=== PATIENT | female | born 1980 | race Caucasian/White ===

== ENCOUNTER 2019-01-30 19:06 | Inpatient (IN) | payer SELFPAY ==
[~2019-01-30] VITALS: Ht 172.7 cm; Wt 87.7 kg
[2019-01-30 19:42] LABS: BASO # 0.1 x10^3/uL (0.0-0.2); BASO % 1 % (0-3); EOS # 0.1 x10^3/uL (0.0-0.7); EOS % 1 % (0-3); HEMATOCRIT 39.2 % (36.0-47.0); HEMOGLOBIN 13.4 g/dL (12.0-15.5); LYMPH # 2.5 x10^3/uL (1.0-4.8); LYMPH % 22 % (24-48); MEAN CORPUSCULAR HEMOGLOBIN 31 pg (25-35); MEAN CORPUSCULAR HGB CONC 34 g/dL (31-37); MEAN CORPUSCULAR VOLUME 92 fL (79-100); MONO # 0.8 x10^3/uL (0.0-1.1); MONO % 7 % (0-9); NEUT # 7.8 x10^3uL (1.8-7.7); NEUT % 69 % (31-73); PLATELET COUNT 316 x10^3/uL (140-400); RED BLOOD COUNT 4.27 x10^6/uL (3.50-5.40); RED CELL DISTRIBUTION WIDTH 12.6 % (11.5-14.5); WHITE BLOOD COUNT 11.2 x10^3/uL (4.0-11.0)
[2019-01-30 19:48] LABS: BILIRUBIN,URINE MODERATE (NEG); CLARITY,URINE CLOUDY; COLOR,URINE ORANGE; NITRITE,URINE NEGATIVE (NEG); PROTEIN,URINE 30 mg/dL (NEG-TRACE)
[2019-01-30 19:51] LABS: CALCIUM 8.8 mg/dL (8.5-10.1); CREATININE 1.4 mg/dL (0.6-1.0); GFR 41.6; POTASSIUM 3.3 mmol/L (3.5-5.1)
[2019-01-30 19:53] LABS: BARBITURATES NEG (NEG); BENZODIAZEPINES POS (NEG); CANNABINOIDS POS (NEG); COCAINE NEG (NEG); METHADONE NEG (NEG); OPIATES NEG (NEG); PHENCYCLIDINE NEG (NEG)
[2019-01-30 19:54] LABS: AMPHETAMINE/METHAMPHETAMINE POS (NEG)
[2019-01-30 19:56] LABS: ALBUMIN 3.5 g/dL (3.4-5.0); ALBUMIN/GLOBULIN RATIO 0.9 (1.0-1.7); TOTAL BILIRUBIN 0.8 mg/dL (0.2-1.0); TOTAL PROTEIN 7.6 g/dL (6.4-8.2)
[2019-01-30 20:00] LABS: HYALINE CASTS, URINE MANY /HPF
[2019-01-30 20:01] LABS: BACTERIA,URINE FEW /HPF (0-FEW); RBC,URINE 0 /HPF (0-2); SQUAMOUS EPITHELIAL CELL,UR FEW /LPF; WBC,URINE OCC /HPF (0-4)
[2019-01-30] MEDS ORDERED: IV NORMAL SALINE 1000ML BAG 1,000 ML IV ONE ×2 (20:15→22:00)
--- NOTE | 2019-01-30 20:22 | PHYS DOC ---
Past Medical History Past Medical History: Unknown Drug Use: Marijuana, Methamphetamine Adult General Chief Complaint Chief Complaint: OVERDOSE HPI HPI Patient is a 39 year old female who presents after ingestion. Per EMS patient took 5-15 trazodone, an unknown amount of klonopin, and 1-2 latuda in an attempt to self harm. Upon arrival to the ED patient had a GCS of 8. Unable to answer any questions. All history of events was received via EMS. Review of Systems Review of Systems Unable to obtain due to patient being non-responsive Current Medications Current Medications Current Medications Medications (Trade) Dose Ordered Sig/Dick Start Time Stop Time Status Last Admin Dose Admin Sodium Chloride 1,000 ml @ 1,000 mls/hr 1X ONCE 01/30/19 20:15 01/30/19 21:14 DC 01/30/19 20:15 1,000 MLS/HR Allergies Allergies Physical Exam Physical Exam Constitutional: Well developed, well nourished HENT: Normocephalic, ecchymosis to left inferior orbit Eyes: Pinpoint pupils reactive to light bilaterally, normal conjunctiva Neck: Supple, no stridor. [] Cardiovascular:Heart rate regular rhythm, no murmur [] Lungs & Thorax: Bilateral breath sounds clear to auscultation [] Abdomen: Bowel sounds normal, soft, no tenderness, no masses, no pulsatile masses. [] Skin: Warm, dry, no erythema, no rash. [] Back: No tenderness, no CVA tenderness. [] Extremities: No tenderness, no cyanosis, no clubbing, ROM intact, no edema. [] Neurologic: Alert and oriented X 3, normal motor function, normal sensory function, no focal deficits noted. [] Psychologic: Affect normal, judgement normal, mood normal. [] Current Patient Data Vital Signs Vital Signs Date Time Temp Pulse Resp B/P (MAP) Pulse Ox O2 Delivery O2 Flow Rate FiO2 01/30/19 19:10 98.8 128 19 108/70 (83) 99 Room Air 98.8 Lab Values Laboratory Tests Test 01/30/19 19:15 01/30/19 19:35 01/30/19 19:39 White Blood Count 11.2 x10^3/uL (4.0-11.0) H Red Blood Count 4.27 x10^6/uL (3.50-5.40) Hemoglobin 13.4 g/dL (12.0-15.5) Hematocrit 39.2 % (36.0-47.0) Mean Corpuscular Volume 92 fL (79-100) Mean Corpuscular Hemoglobin 31 pg (25-35) Mean Corpuscular Hemoglobin Concent 34 g/dL (31-37) Red Cell Distribution Width 12.6 % (11.5-14.5) Platelet Count 316 x10^3/uL (140-400) Neutrophils (%) (Auto) 69 % (31-73) Lymphocytes (%) (Auto) 22 % (24-48) L Monocytes (%) (Auto) 7 % (0-9) Eosinophils (%) (Auto) 1 % (0-3) Basophils (%) (Auto) 1 % (0-3) Neutrophils # (Auto) 7.8 x10^3uL (1.8-7.7) H Lymphocytes # (Auto) 2.5 x10^3/uL (1.0-4.8) Monocytes # (Auto) 0.8 x10^3/uL (0.0-1.1) Eosinophils # (Auto) 0.1 x10^3/uL (0.0-0.7) Basophils # (Auto) 0.1 x10^3/uL (0.0-0.2) Sodium Level 137 mmol/L (136-145) Potassium Level 3.3 mmol/L (3.5-5.1) L Chloride Level 99 mmol/L (98-107) Carbon Dioxide Level 21 mmol/L (21-32) Anion Gap 17 (6-14) H Blood Urea Nitrogen 14 mg/dL (7-20) Creatinine 1.4 mg/dL (0.6-1.0) H Estimated GFR (Cockcroft-Gault) 41.6 BUN/Creatinine Ratio 10 (6-20) Glucose Level 180 mg/dL (70-99) H Calcium Level 8.8 mg/dL (8.5-10.1) Total Bilirubin 0.8 mg/dL (0.2-1.0) Aspartate Amino Transferase (AST) 26 U/L (15-37) Alanine Aminotransferase (ALT) 20 U/L (14-59) Alkaline Phosphatase 60 U/L (46-116) Total Protein 7.6 g/dL (6.4-8.2) Albumin 3.5 g/dL (3.4-5.0) Albumin/Globulin Ratio 0.9 (1.0-1.7) L Salicylates Level 2.8 mg/dL (2.8-20.0) Salicylate Last Dose Date Unk Salicylate Last Dose Time Unk Acetaminophen Level < 2 mcg/ml (10-30) L Acetaminophen Last Dose Date Unk Acetaminophen Last Dose Time Unk Ethyl Alcohol Level < 10 mg/dL (0-10) Urine Collection Type Unknown Urine Color [place] Urine Clarity Cloudy Urine pH 5.0 Urine Specific [place] 1.025 Urine Protein 30 mg/dL (NEG-TRACE) Urine Glucose (UA) Negative mg/dL (NEG) Urine Ketones (Stick) 15 mg/dL (NEG) Urine Blood Negative (NEG) Urine Nitrite Negative (NEG) Urine Bilirubin Moderate (NEG) Urine Urobilinogen Dipstick 1.0 mg/dL (0.2 mg/dL) Urine Leukocyte Esterase Trace (NEG) Urine RBC 0 /HPF (0-2) Urine WBC Occ /HPF (0-4) Urine Squamous Epithelial Cells Few /LPF Urine Bacteria Few /HPF (0-FEW) Urine Hyaline Casts Many /HPF Urine Mucus Marked /LPF Urine Opiates Screen Neg (NEG) Urine Methadone Screen Neg (NEG) Urine Barbiturates Neg (NEG) Urine Phencyclidine Screen Neg (NEG) Urine Amphetamine/Methamphetamine Pos (NEG) Urine Benzodiazepines Screen Pos (NEG) Urine Cocaine Screen Neg (NEG) Urine Cannabinoids Screen Pos (NEG) Urine Ethyl Alcohol Neg (NEG) POC Urine HCG, Qualitative Hcg negative (Negative) Laboratory Tests 01/30/19 19:15 Laboratory Tests 01/30/19 19:15 EKG EKG @1912 Sinus tachycardia at 130bpm, NO ST elevation, QRS 78ms, QT/QTc 320/471ms, Q wave in II Radiology/Procedures Radiology/Procedures [] Course & Med Decision Making Course & Med Decision Making 3-year-old female who in the emergency department due to self ingestion of trazodone, Lamictal, Klonopin. On arrival patient GCS was 8. She was found to be hypotensive at 85/50. Symptomatic treatment provided with interval improvement. Blood pressure is responsive to 2 liters of fluid. Poison control was contacted and recommended supportive care. Patient requiring admission for further evaluation and treatment. Discussed with Dr. Jackman who is in agreement with admission. Discussed findings and plan with patient and family, who acknowledge understanding and agreement. Dragon Disclaimer Dragon Disclaimer This electronic medical record was generated, in whole or in part, using a voice recognition dictation system. Departure Departure Impression: Primary Impression: Suicide attempt Additional Impression: Overdose of trazodone Disposition: ADMITTED INPATIENT Admitting Physician: Raphael De La Garza Condition: CRITICAL Referrals: NO PCP (PCP) Critical Care Time Critical care time was 30 minutes which includes time at bedside, spent in discussion of patient's care with specialists and/or family members, with interpretation of laboratory and/or radiological studies and is exclusive of procedures. Problem Qualifiers SOREN SILVESTRE DO Jan 30, 2019 20:21
[2019-01-30] MEDS ORDERED: ONDANSETRON PF 4 MG/2 ML VIAL. IV PRN (20:45)
[2019-01-30 20:53] LABS: ACETAMIN < 2 mcg/ml (10-30); SALIC 2.8 mg/dL (2.8-20.0)
[2019-01-30] MEDS: IV NORMAL SALINE 1000ML BAG 1,000 ML IV ONE ×2 (20:55→22:32)
[2019-01-30] MEDS ORDERED: NOREPINEPHRIN 8MG/250ML PREMIX 250 ML IV ONE (21:00)
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
--- NOTE | 2019-01-30 21:54 | RAD ---
CHEST AP ONLY History: AMS. No prior comparison. Low lung volumes. No pneumothorax or pleural effusion. No evidence of consolidating infiltrate. Mild density in the right suprahilar region is likely hilar tissue and overlapping bone. IMPRESSION: Low lung volumes, no definite consolidating infiltrate. Electronically signed by: Jose Marie MD (01/30/2019 9:51 PM) [facility]
[2019-01-30 22:30] VITALS: BP 85/57
[2019-01-30] MEDS ORDERED: POTASSIUM CHLORIDE 20 MEQ TABLET.ER. PO ONE (22:30)
[2019-01-30] MEDS ORDERED: ONDANSETRON PF 4 MG/2 ML VIAL. IV ONE (22:30)
[2019-01-30 22:45] VITALS: BP 80/49
[2019-01-30 23:00] VITALS: BP_SYST 81; BP_DIAS 5; BP_DIAS 57
[2019-01-30] MEDS: POTASSIUM CHLORIDE 10MEQ 100 ML IV SCH (23:08)
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
[2019-01-31] VITALS (22 sets, daily range): BP systolic 82–106; BP diastolic 49–73
[2019-01-31] MEDS: POTASSIUM CHLORIDE 10MEQ 100 ML IV SCH ×5 (00:17→12:33)
--- NOTE | 2019-01-31 07:33 | EKG ---
[facility] [address] [place] [address] Test Date: 2019-01-30 Test Time: 19:12:17 Pat Name: TEVIN MYERS Department: Room: 110 1 Gender: F Respite Provider: : 1980 Requested By: CHRISSIE CARIAS Order Number: [id number] Reading MD: Kyle Cowan Measurements Intervals Wallace Rate: 130 P: -26 CA: 120 QRS: -11 QRSD: 78 T: 31 QT: 320 QTc: 471 Interpretive Statements SINUS TACHYCARDIA LEFTWARD AXIS NONSPECIFIC ST-T WAVE CHANGES. Electronically Signed On 02-03-2019 9:24:04 CDT by Kyle Cowan
[2019-01-31] MEDS: IV NORMAL SALINE 1000ML BAG 1,000 ML IV SCH ×2 (08:47→17:22)
[2019-01-31] MEDS ORDERED: DEXTROSE 50% 25 GM / 50ML DISP.SYRIN. IV PRN (09:30)
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
--- NOTE | 2019-01-31 09:50 | NUR ---
Mother "Bonnie" called, asked that info be given to Dr Blanc that "There is a good chance that she is ", relating that patient has not had period for at least [address] Blanc on unit, given this information. Hcg has been done.
[2019-01-31 10:17] LABS: ALBUMIN 3.6 g/dL (3.4-5.0); DIRECT BILIRUBIN 0.2 mg/dL (0.0-0.2); TOTAL BILIRUBIN 0.8 mg/dL (0.2-1.0); TOTAL PROTEIN 7.6 g/dL (6.4-8.2)
--- NOTE | 2019-01-31 10:25 | NUR ---
Poison control center called unit for update on patient status.
[2019-01-31] MEDS: INSULIN LISPRO 300 UNITS/3 ML INSULN.PEN. SQ SCH ×2 (12:00→17:00)
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
--- NOTE | 2019-01-31 14:31 | NUR ---
Wound Care Wound care consult for abrasions. No open wounds noted. WC will sign off at this time. Please reconsult if new wounds develop.
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
[2019-02-01] VITALS (7 sets, daily range): BP systolic 92–126; BP diastolic 59–87
[2019-02-01] MEDS: IV NORMAL SALINE 1000ML BAG 1,000 ML IV SCH ×4 (00:45→20:52)
[2019-02-01 04:42] LABS: BASO % 1 % (0-3); EOS # 0.1 x10^3/uL (0.0-0.7); EOS % 1 % (0-3); HEMATOCRIT 33.6 % (36.0-47.0); HEMOGLOBIN 11.3 g/dL (12.0-15.5); LYMPH % 37 % (24-48); MEAN CORPUSCULAR HEMOGLOBIN 32 pg (25-35); MEAN CORPUSCULAR HGB CONC 34 g/dL (31-37); MEAN CORPUSCULAR VOLUME 94 fL (79-100); MONO # 0.7 x10^3/uL (0.0-1.1); MONO % 6 % (0-9); NEUT # 5.9 x10^3uL (1.8-7.7); NEUT % 55 % (31-73); PLATELET COUNT 268 x10^3/uL (140-400); RED BLOOD COUNT 3.57 x10^6/uL (3.50-5.40); RED CELL DISTRIBUTION WIDTH 12.5 % (11.5-14.5); WHITE BLOOD COUNT 10.7 x10^3/uL (4.0-11.0)
[2019-02-01 05:27] LABS: CREATININE 1.1 mg/dL (0.6-1.0)
[2019-02-01] MEDS: INSULIN LISPRO 300 UNITS/3 ML INSULN.PEN. SQ SCH ×3 (08:00→17:00)
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
--- NOTE | 2019-02-01 16:00 | NUR ---
Pt transferred to room 530 for ongoing observation as 1:1, accompanied by YURIY Ramsey and PAT merchandising team lead Tristen. Pt alert, oriented, VS stable. Report called to Abeba, [phone]. All pt belongings returned w/pt, taken up to the floor by transportation.
--- NOTE | 2019-02-01 17:06 | NUR ---
Pt transferred to room 530 from ICU 110 ongoing observation as 1:1, accompanied by YURIY Ramsey and PAT produce service team member Tristen. Pt alert, oriented, VS stable. Report called from Kimi, [phone]. All pt belongings returned w/pt, brought up to the floor by transportation.
[2019-02-01] MEDS ORDERED: NICOTINE POLACRILEX 2MG GUM PACKAGE of 12. BC PRN (21:00)
[2019-02-02 03:00] VITALS: BP 120/84
[2019-02-02] MEDS: IV NORMAL SALINE 1000ML BAG 1,000 ML IV SCH (04:47)
--- NOTE | 2019-02-02 07:43 | NUR ---
See MAR of 01/30/19 for administration details of Levophed.
[2019-02-02 08:00] VITALS: BP 121/79
[2019-02-02] MEDS: INSULIN LISPRO 300 UNITS/3 ML INSULN.PEN. SQ SCH ×2 (08:00→12:00)
--- NOTE | 2019-02-02 11:45 | NUR ---
Karlee (from [facility]) visited patient. Patient recognized Karlee and stated that it was "okay to speak with Karlee" regarding patient health and status. Karlee said that she was working towards getting a referral for finding placement for the patient (e.g., [facility] followed by [facility]), after discharge. This nurse asked Karlee how she found this room, and was told that Dorene Alanis (case management social worker) called her. Other hospital staff reported no record of this patient. Karlee Nichols, Septic Cleaner [facility] [place] [facility] [place]
[2019-02-02 12:00] VITALS: BP 131/93
--- NOTE | 2019-02-02 12:30 | NUR ---
Dr. Kemp rounded on the patient and has approved patient for discharge. Please see order to discharge from hospital. Patient will be transported by Karlee Nichols, Commutator Repairer of [facility].
--- NOTE | 2019-02-02 13:44 | NUR ---
SW following for discharge planning. Discussed with RN, pt is discharging today with [facility]. No further SW needs.
--- NOTE | 2019-02-02 15:07 | SNU/HH DC ---
DISCHARGE ORDERS DISCHARGE INFORMATION: FINAL DIAGNOSIS Problems Medical Problems: (1) Overdose of trazodone Status: Acute (2) Suicide attempt Status: Acute CONDITION ON DISCHARGE: Stable CODE STATUS: Code Status: Full LONG-TERM: SNF STAY <30 DAYS: No HOSPICE: HOSPICE: No HOSPICE EVAL & TREAT: No LTAC: ADMIT TO LTAC: No POST DISCHARGE ORDERS: ACTIVITY ORDERS: Activity as tolerated WEIGHT BEARING STATUS: As tolerated DIET AFTER DISCHARGE: ADA OTHER WOUND INSTRUCTIONS: VISITOR SERVICE ASSISTANT TREATMENT/EQUIPMENT ORDERS: ADAPTIVE EQUIPMENT NEEDED: None DISCHARGE MEDICATIONS: Home Meds No Active Prescriptions or Reported Meds HEVER BEARD III DO February 02, 2019 15:07
--- NOTE | 2019-02-02 15:26 | NUR ---
PRECIOUS following pt. [facility] not able to take pt on Insulin as pt will have to provide insulin by herself (self pay, not able to afford). Spoke with Physician regarding this problem and Rx changed to PO metformin which on [facility] $4 list. [facility]OUS faxed needed clinicals to [facility] and notified them about plan. Pt's family independence case manager, Karlee here to transport pt to [facility]. ADENIKE CHAVEZ.
--- NOTE | 2019-02-02 15:27 | NUR ---
Patient discharged via wheelchair to private vehicle for transport to mental health facility, in stable condition.
--- NOTE | 2019-02-02 15:27 | NUR ---
Health care team / nurse in communication with Mental Health facility (i.e., [facility]) for report on patient status exchange report.
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
--- NOTE | 2019-02-03 10:20 | EKG ---
[facility] [address] [place] [address] Test Date: 2019-01-31 Test Time: 02:33:06 Pat Name: TEVIN MYERS Department: Room: 530 1 Gender: F Anatomic Pathology Manager: : 1980 Requested By: SOWMYA ARMENTA Order Number: [id number] Reading MD: Erasto Muniz MD Measurements Intervals [place] Rate: 103 P: 42 SD: 146 QRS: 11 QRSD: 60 T: 37 QT: 390 QTc: 513 Interpretive Statements SINUS TACHYCARDIA NON-SPECIFIC ST/T CHANGES Electronically Signed On 02-07-2019 13:49:41 CDT by Erasto Muniz MD
== END 2019-02-02 15:27 | DRG 917 ==
LOC: ER 19:06 → 1 WEST ICU 20:30 → EEVIPCON 20:30 → 5 NORTH 02-01 15:59
PROVIDERS: ADMIT Family Medicine; ATTEND Family Medicine
DX: T43.21 Poisoning by, adverse effect of and underdosing of selective serotonin and norepinephrine reuptake inhibitors (principal); N17.0 Acute kidney failure with tubular necrosis; G93.41 Metabolic encephalopathy; F31.30 Bipolar disorder, current episode depressed, mild or moderate severity, unspecified; T74.21XA Adult sexual abuse, confirmed, initial encounter; F41.9 Anxiety disorder, unspecified; E11.9 Type 2 diabetes mellitus without complications; E87.6 Hypokalemia; X58.XXXA Exposure to other specified factors, initial encounter; Z83.3 Family history of diabetes mellitus; I95.9 Hypotension, unspecified; F12.90 Cannabis use, unspecified, uncomplicated; F17.210 Nicotine dependence, cigarettes, uncomplicated; T54.92XA Toxic effect of unspecified corrosive substance, intentional self-harm, initial encounter; Z81.8 Family history of other mental and behavioral disorders; Z82.49 Family history of ischemic heart disease and other diseases of the circulatory system; Y92.89 Other specified places as the place of occurrence of the external cause; Y93.89 Activity, other specified; Y99.8 Other external cause status
CPT/HCPCS: 36415; 70450; 71045; 72125; 80048; 80053; 80076; 80307; 80329; 81001; 81025; 82962; 85025; 87086; 93005; G0480; J1815; J3480; J7030; 99291-25